=== PATIENT | male | born 1990 | race Hispanic/Latino ===

== ENCOUNTER 2019-12-05 17:23 | Emergency (ER) | payer SELFPAY ==
[2019-12-05] MEDS ORDERED: MORPHINE 4 MG/ML SYR ONE (17:42)
--- NOTE | 2019-12-05 18:51 | RAD REPORT ---
EXAM DESCRIPTION: RAD - Ankle Left 3 View - 12/05/2019 5:53 pm CLINICAL HISTORY: PAIN COMPARISON: No comparisons FINDINGS: Oblique fracture is seen involving the distal shaft of the fibula. Soft tissue swelling is present. No dislocation.
[2019-12-05] MEDS ORDERED: HYDROCODONE/APAP 10/325 TAB ONE (19:08)
[2019-12-05] MEDS ORDERED: TETANUS & DIPHTHERIA TOX,ADULT 0.5 ML VIAL ONE (19:08)
--- NOTE | 2019-12-05 19:17 | ER ---
Nurse's Notes [facility] Name: Adolfo Kincaid Age: 29 yrs Sex: Male : 1990 Arrival Date: 12/05/2019 Time: 17:24 Bed 7 Private MD: Diagnosis: Closed oblique fracture of left distal shaft of fibula Presentation: 12/05 17:29 Presenting complaint: Patient states: "I was at work and my friend had a flat, we were aj1 going to take of the tire, and I lost my balance and my foot fell under me" Patient reports pain in the left foot and left ankle. Transition of care: patient was received from another setting of care (hospital). Onset of symptoms was December 05, 2019. Risk Assessment: Do you want to hurt yourself or someone else? Patient reports no desire to harm self or others. Initial Sepsis Screen: Does the patient meet any 2 criteria? No. Patient's initial sepsis screen is negative. Does the patient have a suspected source of infection? No. Patient's initial sepsis screen is negative. Care prior to arrival: None. 17:29 Method Of Arrival: Wheelchair aj1 17:29 Acuity: UCHE 3 aj1 Triage Assessment: 17:30 General: Appears in no apparent distress. comfortable, Behavior is calm, cooperative, aj1 appropriate for age. Pain: Complains of pain in left foot Pain currently is 10 out of 10 on a pain scale. Neuro: Level of Consciousness is awake, alert, obeys commands. Cardiovascular: Patient's skin is warm and dry. Respiratory: Airway is patent Respiratory effort is even, unlabored, Respiratory pattern is regular, symmetrical. Historical: - Allergies: 17:30 No Known Allergies; aj1 - Home Meds: 17:30 None [Active]; aj1 - PMHx: 17:30 None; aj1 - PSHx: 17:30 None; aj1 - Immunization history:: Flu vaccine is not up to date. - Social history:: Smoking status: Patient/guardian denies using tobacco. - Ebola Screening: : Patient denies travel to an Ebola-affected area in the 21 days before illness onset. Screenin:40 Abuse screen: Denies threats or abuse. Denies injuries from another. Nutritional sg screening: No deficits noted. Tuberculosis screening: No symptoms or risk factors identified. Never had TB. Fall Risk None identified. Assessment: 17:40 General: Appears in no apparent distress. well groomed, well developed, well nourished, sg Behavior is calm, cooperative, appropriate for age. Pain: Pain: Complains of pain in left medial ankle Quality of pain is described as aching, throbbing. 17:42 Injury Description: break in skin noted to the inside of the left ankle, no active sg bleeding noted at this time. 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 Cardiovascular: Heart tones S1 S2 present Patient's skin is warm and dry. Chest pain is denied. Respiratory: Airway is patent Respiratory effort is even, unlabored, Respiratory pattern is regular, symmetrical. GI: Abdomen is round non-distended, Reports tolerance of fluids, tolerance of food. : No signs and/or symptoms were reported regarding the genitourinary system. EENT: No signs and/or symptoms were reported regarding the EENT system. Derm: Skin is pink, warm \\T\\ dry. Musculoskeletal: Circulation, motion, and sensation intact. Range of motion: intact in all extremities, Swelling present in left lateral ankle. 18:50 Reassessment: Patient appears in no apparent distress at this time. Patient and/or sg family updated on plan of care and expected duration. Pain level reassessed. Patient is alert, oriented x 3, equal unlabored respirations, skin warm/dry/pink. awaiting official read for xray per Fermín PANTOJA, pt and pt family stated understanding. 18:53 Reassessment: Patient appears in no apparent distress at this time. Patient and/or sg family updated on plan of care and expected duration. Pain level reassessed. Patient is alert, oriented x 3, equal unlabored respirations, skin warm/dry/pink. Fermín PANTOJA at bedside updating pt on results of xray and official read of xray, pt and pt family stated understanding. Vital Signs: 17:30 BP 138 / 92; sg 17:30 Pulse 94; Resp 18; Temp 98.2; Pulse Ox 96% on R/A; Weight 136.08 kg (R); Height 5 ft. sg 11 in. (180.34 cm) (R); Pain 10/10; 18:21 BP 136 / 88; Pulse 72; Resp 17; Temp 97.7; Pulse Ox 98% on R/A; sg 19:55 BP 134 / 86; Pulse 71; Resp 16; Pulse Ox 98% on R/A; rv 17:30 Body Mass Index 41.84 (136.08 kg, 180.34 cm) sg ED Course: 17:24 Patient arrived in ED. as 17:26 Fermín Tay NP is PHCP. pm1 17:26 Juan Jaffe MD is Attending Physician. pm1 17:30 Triage completed. aj1 17:30 Arm band placed on Patient placed in an exam room. aj1 17:37 Castillo Maynard, RN is Primary Nurse. sg 17:40 No provider procedures requiring assistance completed. Patient did not have IV access sg during this emergency room visit. 17:47 Elevated left foot. sg 17:53 Ankle Left 3 View XRAY In Process Unspecified. EDMS 19:00 Patient has correct armband on for positive identification. Bed in low position. Call rv light in reach. Pulse ox on. NIBP on. 19:14 Castillo Jansen MD is Referral Physician. 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 Exp: rv 12/09/2021. Lot #: [id number]. } Route: IM; Site: left deltoid; 19:58 Follow up: Response: No adverse reaction rv 19:05 Drug: [place] 10 mg-325 mg 1 tabs {Note: rass 0.} Route: PO; rv 19:58 Follow up: Response: No adverse reaction; Marked relief of symptoms; RASS: Alert and rv Calm (0) Outcome: 19:16 Discharge ordered by . pm1 19:56 Discharged to home via wheelchair. rv 19:56 Condition: good 19:56 Discharge instructions given to patient, family, Instructed on discharge instructions, follow up and referral plans. medication usage, crutch walking, Demonstrated understanding of instructions, follow-up care, medications, Prescriptions given X 1. 20:24 Patient left the ED. rv Signatures: Dispatcher [employer] EDMS Alta Brock RN RN aj1 Castillo Maynard RN RN sg Sherrie Rhoades Patrick, SET UP AND CHARGER SET UP AND CHARGER pm1 Padilla Gallardo RN RN rv Corrections: (The following items were deleted from the chart) 17:36 17:29 Presenting complaint: Patient states: "I was at work and my friend had a flat, we aj1 were going to take of the tire, and I lost my balance and my foot fell under me" Patient reports pain in the left foot aj1 17:36 17:29 Acuity: UCHE 4 aj1 [facility] 17:45 17:40 Pain: sg sg 18:21 17:30 BP 138 / 9; Pulse 94bpm; Resp 18bpm; Pulse Ox 96% RA; Temp 98.2F; 136.08 kg sg Reported; Height 5 ft. 11 in. Reported; BMI: 41.8; Pain 10/10; aj1
--- NOTE | 2019-12-05 19:17 | EDPHYS ---
Physician Documentation [facility] Name: Adolfo Kincaid Age: 29 yrs Sex: Male : 1990 Arrival Date: 12/05/2019 Time: 17:24 Bed 7 Private MD: ED Physician Juan Jaffe HPI: 12/05 19:05 This 29 yrs old Male presents to ER via Wheelchair with complaints of Left pm1 Ankle Injury. 19:05 The patient presents with an injury. The complaints affect the left ankle. Context: The pm1 problem was sustained at work, resulted from turning ankle, the patient is not able to bear weight, Problem is a result from a previous injury: No. Onset: The symptoms/episode began/occurred just prior to arrival. Modifying factors: The symptoms are alleviated by elevating leg, the symptoms are aggravated by weight bearing. Associated signs and symptoms: Pertinent positives: swelling, Pertinent negatives calf tenderness, numbness, tingling. The patient presents with pain, swelling, tenderness. 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 Historical: - Allergies: 17:30 No Known Allergies; aj1 - Home Meds: 17:30 None [Active]; aj1 - PMHx: 17:30 None; aj1 - PSHx: 17:30 None; aj1 - Immunization history:: Flu vaccine is not up to date. - Social history:: Smoking status: Patient/guardian denies using tobacco. - Ebola Screening: : Patient denies travel to an Ebola-affected area in the 21 days before illness onset. ROS: 19:05 Constitutional: Negative for fever, chills, and weight loss, Neck: Negative for injury, pm1 pain, and swelling, Cardiovascular: Negative for chest pain, palpitations, and edema, Respiratory: Negative for shortness of breath, cough, wheezing, and pleuritic chest pain, Abdomen/GI: Negative for abdominal pain, nausea, vomiting, diarrhea, and constipation, Back: Negative for injury and pain. 19:05 Neuro: Negative for headache, weakness, numbness, tingling, and seizure. 19:05 MS/extremity: Positive for pain, swelling, tenderness, of the left lateral ankle. 19:05 Skin: Positive for abrasion(s), of the left medial ankle. 19:05 All other systems are negative. Exam: 19:05 Constitutional: This is a well developed, well nourished patient who is awake, alert, pm1 and in no acute distress. Head/Face: Normocephalic, atraumatic. Neck: Trachea midline, no thyromegaly or masses palpated, and no cervical lymphadenopathy. Supple, full range of motion without nuchal rigidity, or vertebral point tenderness. No Meningismus. Chest/axilla: Normal chest wall appearance and motion. Nontender with no deformity. No lesions are appreciated. Cardiovascular: Regular rate and rhythm with a normal S1 and S2. No gallops, murmurs, or rubs. Normal PMI, no JVD. No pulse deficits. Respiratory: Lungs have equal breath sounds bilaterally, clear to auscultation and percussion. No rales, rhonchi or wheezes noted. No increased work of breathing, no retractions or nasal flaring. Abdomen/GI: Soft, non-tender, with normal bowel sounds. No distension or tympany. No guarding or rebound. No evidence of tenderness throughout. Back: No spinal tenderness. No costovertebral tenderness. Full range of motion. 19:05 Musculoskeletal/extremity: Extremities: grossly normal except: noted in the left lateral ankle: pain, swelling, tenderness. 19:05 Skin: Appearance: normal except for affected area, injury, abrasion(s), small abrasion noted, of the left medial ankle. Vital Signs: 17:30 BP 138 / 92; sg 17:30 Pulse 94; Resp 18; Temp 98.2; Pulse Ox 96% on R/A; Weight 136.08 kg (R); Height 5 ft. sg 11 in. (180.34 cm) (R); Pain 10/10; 18:21 BP 136 / 88; Pulse 72; Resp 17; Temp 97.7; Pulse Ox 98% on R/A; sg 19:55 BP 134 / 86; Pulse 71; Resp 16; Pulse Ox 98% on R/A; rv 17:30 Body Mass Index 41.84 (136.08 kg, 180.34 cm) sg Procedures: 20:21 Splinting: Splint applied to left ankle using Orthoglass splint, applied by myself. pm1 tech. Examined by me, post splint application: neurovascular intact, 2+ distal pulses palpable, brisk capillary refill noted, Patient tolerated well. MDM: 17:33 Patient medically screened. pm1 19:13 Data reviewed: vital signs. Data interpreted: Pulse oximetry: on room air is 98 %. pm1 Interpretation: normal. Counseling: I had a detailed discussion with the patient and/or guardian regarding: the historical points, exam findings, and any diagnostic results supporting the discharge/admit diagnosis, radiology results, the need for outpatient follow up, for definitive care, a orthopedic surgeon, Informed patient that he will need surgery, to return to the emergency department if symptoms worsen or persist or if there are any questions or concerns that arise at home. 12/05 17:36 Order name: Ankle Left 3 View XRAY; Complete Time: 18:52 pm1 12/05 19:00 Order name: Splint - Ankle: Orthoglass: Stirrup pm1 12/05 19:00 Order name: Ankle Splint: Orthoglass: Posterior pm1 12/05 19:00 Order name: Wound Care; Complete Time: 19:58 pm1 12/05 19:00 Order name: Crutches; Complete Time: 19:58 pm1 Administered Medications: 17:43 Drug: morphine 4 mg Route: IM; Site: right deltoid; sg 17:54 Follow up: Response: No adverse reaction; Pain is decreased sg 19:00 Drug: Triple Antibiotic Ointment 1 application Route: Topical; Site: affected area; rv 19:58 Follow up: Response: No adverse reaction rv 19:05 Drug: Tetanus-Diphtheria Toxoid Adult 0.5 ml {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 Exp: rv 12/09/2021. Lot #: [id number]. } Route: IM; Site: left deltoid; 19:58 Follow up: Response: No adverse reaction rv 19:05 Drug: [place] 10 mg-325 mg 1 tabs {Note: rass 0.} Route: PO; rv 19:58 Follow up: Response: No adverse reaction; Marked relief of symptoms; RASS: Alert and rv Calm (0) Disposition: 12/06 07:05 Co-signature as Attending Physician, Juan Jaffe MD. rn Disposition: 12/05/19 19:16 Discharged to Home. Impression: Closed oblique fracture of left distal shaft of fibula. - Condition is Stable. - Discharge Instructions: Cast or Splint Care, Adult, Crutch Use, Fibular Fracture, Pediatric. - Prescriptions for Tylenol- Codeine #3 300-30 mg Oral Tablet - take 2 tablet by ORAL route every 6 hours As needed; 30 tablet. - Medication Reconciliation Form, Thank You Letter, Antibiotic Education, Prescription Opioid Use form. - Follow up: Emergency Department; When: As needed; Reason: Worsening of condition. Follow up: Castillo Jansen MD; When: 2 - 3 days; Reason: Recheck today's complaints, Continuance of care, Re-evaluation by your physician. - Problem is new. - Symptoms have improved. Signatures: Dispatcher [employer] EDAlta Christopher RN RN aj1 Castillo Maynard RN RN sg Juan Jaffe MD MD rn Marinas, Patrick, SENIOR SUPPLY CHAIN ANALYST SENIOR SUPPLY CHAIN ANALYST pm1 Padilla Gallardo RN RN rv Corrections: (The following items were deleted from the chart) 12/05 20:24 19:16 12/05/2019 19:16 Discharged to Home. Impression: Closed oblique fracture of left rv distal shaft of fibula. Condition is Stable. Forms are Medication Reconciliation Form, Thank You Letter, Antibiotic Education, Prescription Opioid Use. Follow up: Emergency Department; When: As needed; Reason: Worsening of condition. Follow up: Castillo Jansen; When: 2 - 3 days; Reason: Recheck today's complaints, Continuance of care, Re-evaluation by your physician. Problem is new. Symptoms have improved. pm1
[2019-12-05 20:37] VITALS: TEMP 97.7; O2SAT 98
[2019-12-05 20:38] VITALS: BP 134/86
== END 2019-12-05 20:24 | disposition home or self-care (01) ==
LOC: ER 17:23
PROC: 2W3RX1Z Immobilization of Left Lower Leg using Splint (ICD-10-PCS; principal; 2019-12-05)
DX: S82.432A Displaced oblique fracture of shaft of left fibula, initial encounter for closed fracture (principal); X58.XXXA Exposure to other specified factors, initial encounter; Y93.89 Activity, other specified; Y92.9 Unspecified place or not applicable; Z23 Encounter for immunization
CPT/HCPCS: 90471; 90714; 96372; 99284

== ENCOUNTER 2019-12-14 10:24 | Day surgery (SDC) | payer SELFPAY ==
[2019-12-13 12:39] LABS: Absolute Lymphocytes (CBC) 2.3 K/uL (0.7-4.9); Basophils % 0.5 % (0-1.3); Hematocrit 44.3 % (39.6-49.0); MPV 9.6 fL (7.6-11.3); RBC Red Blood Cell Count 4.63 M/uL (4.33-5.43)
[2019-12-13 12:43] LABS: ALT/SGPT 85 U/L (12-78); AST/SGOT 31 U/L (15-37); Albumin 3.2 g/dL (3.4-5.0); Alkaline Phosphatase 56 U/L (45-117); BUN Blood Urea Nitrogen 10 mg/dL (7-18); Bicarbonate 29 mmol/L (21-32); Bilirubin Total 0.4 mg/dL (0.2-1.0); Glucose Level 165 mg/dL (74-106); Potassium 3.8 mmol/L (3.5-5.1); Protein, Total 7.1 g/dL (6.4-8.2); Sodium Level 140 mmol/L (136-145)
[2019-12-14] MEDS ORDERED: NS 0.9% VIAL 20 ML ONE (10:33)
[2019-12-14] MEDS ORDERED: CEFAZOLIN/SWI 1gm 1 GM/10 ML SYR ONE (10:34)
[2019-12-14] MEDS ORDERED: Ringers Lactate 1,000 ML IV ONE ×2 (10:34→13:59)
[2019-12-14] MEDS ORDERED: LIDOCAINE 2% MPF 5 ML VIAL ONE ×2 (10:34→10:55)
[2019-12-14] MEDS ORDERED: dexAMETHasone 10 MG/ML VIAL ONE ×2 (10:35→12:06)
[2019-12-14] MEDS ORDERED: BUPIVACAINE 0.25% PF 10 ML VIAL ONE (10:35)
[2019-12-14] MEDS ORDERED: FENTANYL CITR 100 MCG/2 ML ONE ×2 (10:36→12:17)
[2019-12-14] MEDS ORDERED: MIDAZOLAM HCL 2 MG/2 ML INJ ONE (10:36)
[2019-12-14] MEDS ORDERED: propofoL 200 MG/20 ML VIAL IV ONE (10:55)
[2019-12-14] MEDS ORDERED: ONDANSETRON 4 MG/2 ML VIAL ONE (12:06)
[2019-12-14] MEDS ORDERED: KETOROLAC 30 MG/ML INJ ONE (12:07)
[2019-12-14] MEDS ORDERED: KETAMINE HCL 500 MG/5 ML VIAL ONE (12:17)
--- NOTE | 2019-12-14 13:50 | RAD REPORT ---
EXAM DESCRIPTION: RAD - Ankle Left 3 View -12/14/2019 1:27 pm CLINICAL HISTORY: Fibular fracture FINDINGS: Three fluoroscopic intraoperative views left ankle taken. Fluoroscopy time 0.6 minutes Sideplate and screws affix a fibular fracture. Surgery performed by Dr Jansen
[2019-12-14 14:55] VITALS: TEMP 98
[2019-12-14] MEDS ORDERED: CODEINE 30MG/APAP 300MG TAB ONE (15:10)
[2019-12-14 15:28] VITALS: BP 125/84; O2SAT 98
--- NOTE | 2019-12-14 21:30 | OP ---
Date of Procedure: 12/14/2019 Surgeon: Castillo Jansen MD Preoperative Diagnosis: Left displaced lateral malleolus fracture with possible disruption of syndes mosis. Postoperative Diagnosis: Left lateral malleolus fracture. Estimated Blood Loss: 10 mL. Complications: There were no complications. Specimens: No pathology specimens sent. Indications For Operation: Mr. Kincaid is a 29-year-old male who unfortunately injured his left ankle t hrough a twisting injury, came to see me in my office. X-rays were reviewed, which revealed a commin uted very long fracture of the lateral malleolus with widening of the medial clear space. This did a ppear to go down to the joint and it is unclear whether or not the syndesmotic ligament was disrupted . All risks, benefits, and alternatives to open reduction and internal fixation have been discussed with the patient and family. They state they understand things presented and wished to proceed. Description Of Procedure: Patient was taken to the operating room and placed in supine position, gen eral anesthesia was obtained by the staff. Following this, a well-padded tourniquet was placed on taveras perior left thigh. A bump was placed on the superior aspect of the left thigh. Left lower extremity was then prepped and draped in the usual sterile fashion for the procedure. Following this the leg was then elevated, but not exsanguinated. Tourniquet was raised. C-arm was brought in to paige out p osition of the distal aspect of the fibula as well as the fracture which did appear to be extremely l daryn and quite thin. A standard lateral approach was then taken down carefully through skin and soft tissues with meticulous hemostasis being maintained using Bovie electrocautery. Care was taken to pr otect the superficial peroneal nerve as further dissection was done with scissors. This leads down t he fracture site, which is actually quite long and very thin. Fracture site itself was cleared and t he standard reduction technique was done to reduce the fibula. Luckily, there were good landmarks th at show an anatomic reduction. Following this, a lag screw was then placed to hold the reduction. A s far as plating, the decision was made to use the Acumed distal fibular locking plate and this was t hen applied in standard fashion with the exception of placing two 7 screws in 2 of the more proximal screw holes. This was done because the fracture itself is quite thin at that point and it was felt t hat this gave the best purchase through this small amount of available bone. The more superior screw was placed in a standard 3.5 fashion. After this, the C-arm was brought in. The foot was placed in normal dorsiflexion and Cotton test is performed, did not appear to have any widening of the syndesm osis. Decision was made not to place a syndesmotic screw. After this was irrigated and the skin was closed using interrupted Vicryl sutures, followed by huseyin, patient was then placed in extremely w ell-padded sterile dressing and posterior splint with a U. [facility]. There were no complications. /ZACH Voice ID: [id number] Report ID: [id number]
== END 2019-12-14 15:52 | disposition home or self-care (01) ==
LOC: OR 10:24
PROVIDERS: ATTEND Orthopaedic Surgery
PROC: 0QSK04Z Reposition Left Fibula with Internal Fixation Device, Open Approach (ICD-10-PCS; principal; 2019-12-14 11:30)
DX: S82.62XA Displaced fracture of lateral malleolus of left fibula, initial encounter for closed fracture (principal)
CPT/HCPCS: 85025; 36415; 80053; 73610; 27792; J2704; J2250; J3010 ×2; J1100 ×2; J0690; J7120 ×2; J2405

== ENCOUNTER 2021-02-12 13:03 | Emergency (ER) | payer SELFPAY ==
[2021-02-12] MEDS ORDERED: HYDROCODONE/APAP 10/325 TAB ONE (14:14)
--- NOTE | 2021-02-12 14:31 | RAD REPORT ---
EXAM DESCRIPTION: Prasanna Contreras (2 Views)02/12/2021 2:24 pm CLINICAL HISTORY: Chest pain COMPARISON: None FINDINGS: The lungs appear clear of acute infiltrate. The heart is normal size IMPRESSION: No acute abnormalities displayed
--- NOTE | 2021-02-12 14:32 | RAD REPORT ---
EXAM DESCRIPTION: RAD - Shoulder Right 2 View - 02/12/2021 2:24 pm CLINICAL HISTORY: Right shoulder pain FINDINGS: No fracture or dislocation is seen.
--- NOTE | 2021-02-12 14:41 | EDPHYS ---
Physician Documentation [facility] Name: Adolfo Kincaid Age: 30 yrs Sex: Male : 1990 Arrival Date: 02/12/2021 Time: 13:07 Bed 28 Private MD: ED Physician Juan Jaffe HPI: 02/12 13:56 This 30 yrs old Male presents to ER via Ambulatory with complaints of Shoulder pm1 Injury. 13:56 The patient or guardian complains of pain, that is acute. right shoulder. Context: The pm1 problem was sustained outdoors, resulted from crush injury, The patient reports no obvious deformity. Pain with raising right arm up. 13:56 Onset: The symptoms/episode began/occurred today. Modifying factors: the symptoms are pm1 alleviated by remaining still, The symptoms are aggravated by movement. Associated signs and symptoms: Pertinent negatives: abdominal pain, chest pain, neck pain, Numbness in right arm shortness of breath, tingling, Weakness in right arm. Treatment prior to arrival includes: no previous treatment. The patient has not experienced similar symptoms in the past. The patient has not recently seen a physician. 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 He lowered the vehicle while he was still underneath and pinned his right shoulder under the car. He was able to pulling himself out. Historical: - Allergies: 13:24 No Known Allergies; ll1 - PMHx: 13:24 None; ll1 - PSHx: 13:24 leg sx; ll1 - Immunization history:: Flu vaccine is up to date. - Social history:: Smoking status: Patient reports the use of cigarette tobacco products, smokes one-half pack cigarettes per day. ROS: 14:30 Constitutional: Negative for fever, chills, and weight loss, Neck: Negative for injury, pm1 pain, and swelling, Cardiovascular: Negative for chest pain, palpitations, and edema, Respiratory: Negative for shortness of breath, cough, wheezing, and pleuritic chest pain, Abdomen/GI: Negative for abdominal pain, nausea, vomiting, diarrhea, and constipation, Back: Negative for injury and pain. 14:30 Skin: Negative for injury, rash, and discoloration, Neuro: Negative for headache, weakness, numbness, tingling, and seizure. 14:30 MS/extremity: Positive for pain, of the right shoulder and right clavicle, Negative for decreased range of motion, deformity. Exam: 14:30 Constitutional: This is a well developed, well nourished patient who is awake, alert, pm1 and in no acute distress. Head/Face: Normocephalic, atraumatic. Neck: Trachea midline, no thyromegaly or masses palpated, and no cervical lymphadenopathy. Supple, full range of motion without nuchal rigidity, or vertebral point tenderness. No Meningismus. 14:30 Skin: Warm, dry with normal turgor. Normal color with no rashes, no lesions, and no evidence of cellulitis. 14:30 Chest/axilla: Inspection: normal, Palpation: crepitus, is not appreciated, tenderness, that is mild, of the right supraclavicular area. 14:30 Cardiovascular: Exam negative for acute changes, Rate: normal, Rhythm: regular, Pulses: no pulse deficits are appreciated. 14:30 Respiratory: Exam negative for acute changes, respiratory distress, shortness of breath. 14:30 Musculoskeletal/extremity: Extremities: grossly normal except: noted in the anterior aspect of right shoulder: tenderness, There is no evidence of abrasion, decreased ROM, deformity, Circulation is intact in all extremities. the right arm Sensation intact. 14:30 Neuro: Exam negative for acute changes, Orientation: is normal, Mentation: is normal, Motor: is normal, moves all fours. Vital Signs: 13:24 BP 129 / 88; Pulse 85; Resp 17; Temp 98.0; Pulse Ox 98% on R/A; Weight 129.27 kg; ll1 Height 5 ft. 9 in. (175.26 cm); Pain 8/10; 13:24 Body Mass Index 42.09 (129.27 kg, 175.26 cm) ll1 MDM: 14:12 Patient medically screened. pm1 14:39 Data reviewed: vital signs. Data interpreted: Pulse oximetry: on room air is 98 %. pm1 Interpretation: normal. Counseling: I had a detailed discussion with the patient and/or guardian regarding: the historical points, exam findings, and any diagnostic results supporting the discharge/admit diagnosis, radiology results, the need for outpatient follow up, a orthopedic surgeon, to return to the emergency department if symptoms worsen or persist or if there are any questions or concerns that arise at home. 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 pm1 02/12 13:30 Order name: Shoulder Right (2 View) XRAY; Complete Time: 14:39 ss 02/12 13:30 Order name: XRAY Chest Pa And Lat (2 Views); Complete Time: 14:39 ss 02/12 13:58 Order name: Sling; Complete Time: 14:02 pm1 Administered Medications: 14:02 Drug: Dougherty 10 mg-325 mg 1 tabs {Note: rass 0.} Route: PO; ll1 15:06 Follow up: Response: No adverse reaction; Pain is decreased ss Disposition: 16:20 Co-signature as Attending Physician, Juan Jaffe MD. rn Disposition: 02/12/21 14:40 Discharged to Home. Impression: Contusion of right shoulder, Pain in right shoulder. - Condition is Stable. - Discharge Instructions: Contusion, Shoulder Pain, How to Use a Sling. - Prescriptions for Diclofenac Sodium 75 mg Oral Tablet, Delayed Release (E.C.) - take 1 tablet by ORAL route 2 times per day As needed; 30 tablet. Tramadol 50 mg Oral Tablet - take 1 tablet by ORAL route every 8 hours as needed; 12 tablet. - Medication Reconciliation Form, Thank You Letter, Antibiotic Education, Prescription Opioid Use form. - Follow up: Emergency Department; When: As needed; Reason: Worsening of condition. Follow up: Private Physician; When: 2 - 3 days; Reason: Recheck today's complaints, Continuance of care, Re-evaluation by your physician. - Problem is new. - Symptoms have improved. Signatures: Dispatcher [employer] EDMS Juan Jaffe MD MD rn Smirch, Shelby, RN RN ss Fermín Tay, LEDY HRIS ANALYST pm1 Arlene Georges RN RN ll1 Corrections: (The following items were deleted from the chart) 15:05 14:40 02/12/2021 14:40 Discharged to Home. Impression: Contusion of right shoulder; ss Pain in right shoulder. Condition is Stable. Forms are Medication Reconciliation Form, Thank You Letter, Antibiotic Education, Prescription Opioid Use. Follow up: Emergency Department; When: As needed; Reason: Worsening of condition. Follow up: Private Physician; When: 2 - 3 days; Reason: Recheck today's complaints, Continuance of care, Re-evaluation by your physician. Problem is new. Symptoms have improved. pm1
--- NOTE | 2021-02-12 14:41 | ER ---
Nurse's Notes [facility] Name: Adolfo Kincaid Age: 30 yrs Sex: Male : 1990 Arrival Date: 02/12/2021 Time: 13:07 Bed 28 Private MD: Diagnosis: Contusion of right shoulder;Pain in right shoulder Presentation: 02/12 13:24 Chief complaint: Patient states: Letting car rossy down slowly and the car fell down ll1 onto him. Squashed R shoulder into the ground. Pulled himself out from under the car on his own. No head injury or LOC. Coronavirus screen: Client denies travel out of the [place] in the last 14 days. At this time, the client does not indicate any symptoms associated with coronavirus-19. Ebola Screen: Patient denies travel to an Ebola-affected area in the 21 days before illness onset. Initial Sepsis Screen: Does the patient meet any 2 criteria? No. Patient's initial sepsis screen is negative. Does the patient have a suspected source of infection? Yes: Bone or joint infection. Risk Assessment: Do you want to hurt yourself or someone else? Patient reports no desire to harm self or others. Onset of symptoms was February 12, 2021. 13:24 Method Of Arrival: Ambulatory ll1 13:24 Acuity: UCHE 4 ll1 Triage Assessment: 13:25 General: Appears uncomfortable, Behavior is calm, cooperative, appropriate for age. ll1 Pain: Complains of pain in right shoulder. Musculoskeletal: Circulation, motion, and sensation intact. Capillary refill < 3 seconds, Tenderness present in right shoulder Reports pain in R shoulder/R clavicle. Injury Description: Crush injury. Historical: - Allergies: 13:24 No Known Allergies; ll1 - PMHx: 13:24 None; ll1 - PSHx: 13:24 leg sx; ll1 - Immunization history:: Flu vaccine is up to date. - Social history:: Smoking status: Patient reports the use of cigarette tobacco products, smokes one-half pack cigarettes per day. Screenin:27 Abuse screen: Denies threats or abuse. Denies injuries from another. Nutritional ss screening: No deficits noted. Tuberculosis screening: Never had TB. Fall Risk None identified. Assessment: 14:02 Reassessment: No changes from previously documented assessment. Patient and/or family ll1 updated on plan of care and expected duration. Pain level reassessed. Patient is alert, oriented x 3, equal unlabored respirations, skin warm/dry/pink. 14:27 Reassessment: Pt is back from CT. General: Appears in no apparent distress. ss comfortable. Pain: Complains of pain in right shoulder Pain currently is 8 out of 10 on a pain scale. Quality of pain is described as aching, tender, Pain began suddenly, Is continuous. Neuro: Level of Consciousness is awake, alert, obeys commands, Oriented to person, place, time, situation. Cardiovascular: Capillary refill < 3 seconds is brisk in bilateral fingers Patient's skin is warm and dry. Respiratory: Airway is patent Respiratory effort is even, unlabored, Respiratory pattern is regular, symmetrical. GI: No signs and/or symptoms were reported involving the gastrointestinal system. Patient currently denies diarrhea, nausea, vomiting. EENT: Oral mucosa is moist. Derm: Skin is intact, is healthy with good turgor, Skin is pink, warm \T\ dry. normal. Musculoskeletal: Circulation, motion, and sensation intact. Range of motion: limited in right shoulder. Vital Signs: 13:24 BP 129 / 88; Pulse 85; Resp 17; Temp 98.0; Pulse Ox 98% on R/A; Weight 129.27 kg; ll1 Height 5 ft. 9 in. (175.26 cm); Pain 8/10; 13:24 Body Mass Index 42.09 (129.27 kg, 175.26 cm) ll1 ED Course: 13:07 Patient arrived in ED. ds1 13:24 Arm band placed on. ll1 13:27 Triage completed. ll1 13:56 Fermín Tay NP is PHCP. pm1 13:56 Juan Jaffe MD is Attending Physician. pm1 14:02 Sling applied to right arm. ll1 14:21 X-ray completed. Patient tolerated procedure well. Patient moved to radiology [facility] ambulatory. Patient moved back from radiology. 14:22 Shoulder Right (2 View) XRAY In Process Unspecified. EDMS 14:22 XRAY Chest Pa And Lat (2 Views) In Process Unspecified. EDMS 14:27 Malina Lorenz, ROHAN is Primary Nurse. ss 14:27 Patient has correct armband on for positive identification. Bed in low position. Call light in reach. 15:04 No provider procedures requiring assistance completed. Patient did not have IV access ss during this emergency room visit. Administered Medications: 14:02 Drug: [place] 10 mg-325 mg 1 tabs {Note: rass 0.} Route: PO; ll1 15:06 Follow up: Response: No adverse reaction; Pain is decreased ss Outcome: 14:40 Discharge ordered by MD. pm1 15:04 Discharged to home ambulatory. ss 15:04 Condition: good 15:04 Discharge instructions given to patient, Instructed on discharge instructions, follow up and referral plans. medication usage, Demonstrated understanding of instructions, medications, Prescriptions given X 2. 15:05 Patient left the ED. Signatures: Dispatcher [employer] EDCary Carrasco 1 Beatrice Brody ds1 Malina Lorenz, ROHAN RN ss Fermín Tay, LEDY MANAGER QUANTITATIVE pm1 Arlene Georges RN RN 1
[2021-02-12 15:11] VITALS: BP 129/88; TEMP 98; O2SAT 98
== END 2021-02-12 15:05 | disposition home or self-care (01) ==
LOC: ER 13:03
DX: S40.011A Contusion of right shoulder, initial encounter (principal); W20.8XXA Other cause of strike by thrown, projected or falling object, initial encounter; Y93.89 Activity, other specified; Y92.9 Unspecified place or not applicable; F17.210 Nicotine dependence, cigarettes, uncomplicated
CPT/HCPCS: 71046; 99284